=== PATIENT | male | born 1975 | race Two or more races ===

== ENCOUNTER 2018-01-29 05:59 | Day surgery (SDC) | payer OTHER ==
[~2018-01-29] VITALS: Ht 175.3 cm; Wt 101.2 kg
[2018-01-29] MEDS ORDERED: METHOCARBAMOL750 MG ORAL (06:37)
[2018-01-29] MEDS ORDERED: NAPROXEN250 M1 PO (06:37)
[2018-01-29] MEDS ORDERED: OMEPRAZOLE20 M2 ORAL (06:37)
[2018-01-29 06:47] VITALS: BP 130/81
--- NOTE | 2018-01-29 07:12 | Pre-Procedure Note/Attestation ---
Pre-Procedure Note/Attestation Complete Prior to Procedure Planned Procedure: left Procedure Narrative: knee stem cell injection Indications for Procedure Pre-Operative Diagnosis: left knee meniscus tear Attestation I attest that I discussed the nature of the procedure; its benefits; risks and complications; and alternatives (and the risks and benefits of such alternatives ), prior to the procedure, with the patient (or the patient's legal development representative). I attest that, if there was a reasonable possibility of needing a blood transfusion, the patient (or the patient's legal development representative) was given the [facility] standardized written summary, pursuant to the Raymond Bg Blood Safety Act ([place] Health and Safety Code # 1645, as amended). I attest that I re-evaluated the patient just prior to the surgery and that there has been no change in the patient's H&P, except as documented below: Juancho Bernal MD Jan 29, 2018 07:12
--- NOTE | 2018-01-29 07:13 | Operative Note - PDOC ---
Operative Note Operative Note Pre-op Diagnosis: left knee meniscus tear Procedure: see op report Post-op Diagnosis: same as pre-op plus Operative Findings: consistent w/pre-op dx studies Anesthesia: MAC Specimen: none Complications: none Condition: stable Estimated Blood Loss: none Implant(s) used?: No Juancho Bernal MD Jan 29, 2018 07:13
[2018-01-29] MEDS ORDERED: Bupivacaine w/Epi 0.25% 30ml Vial INJ ONE ×2 (08:03→08:17)
[2018-01-29] MEDS ORDERED: Propofol 200mg/20ml IV ONE (08:24)
[2018-01-29 09:00] VITALS: BP 125/71
[2018-01-29 09:15] VITALS: BP 124/69
--- NOTE | 2018-01-29 09:17 | Immediate Post-Op Evaluation ---
Immediate Post-Op Evalulation Immediate Post-Op Evalulation Procedure: stem cell injection left knee Date of Evaluation: Jan 29, 2018 Time of Evaluation: 08:51 IV Fluids: 500 Blood Pressure Systolic: 112 Blood Pressure Diastolic: 50 Pulse Rate: 70 Respiratory Rate: 14 O2 Sat by Pulse Oximetry: 98 Temperature (Fahrenheit): 98.0 Nausea: No Vomiting: No Complications none Patient Status: awake, reacts, patent Hydration Status: adequate Drug: ancef Given Within 1 Hr of Incision: Yes Time Given: 08:05 Ashley Pereira CRNA Jan 29, 2018 09:17
--- NOTE | 2018-01-29 09:19 | Anethesia Preoperative Eval ---
Anesthesia Pre-op PMH/ROS General Date of Evaluation: Jan 29, 2018 Time of Evaluation: 07:00 Anesthesiologist: margarito ASA Score: ASA 2 Mallampati Score Class I : Soft palate, uvula, fauces, pillars visible Class II: Soft palate, uvula, fauces visible Class III: Soft palate, base of uvula visible Class IV: Only hard plate visible Mallampati Classification: Class II Surgeon: delbert Diagnosis: knee pain Surgical Procedure: stem cell injection Anesthesia History: none Allergies: Coded Allergies: No Known Allergies (Unverified , 01/28/18) Patient NPO?: Yes NPO Date: Jan 28, 2018 NPO Time: 23:59 Past Medical History Cardiovascular: Denies: HTN, CAD, NC, valve dz, arrhythmia, other Pulmonary: Denies: asthma, COPD, TEDDY, other Gastrointestinal/Genitourinary: Denies: GERD, CRI, ESRD, other Neurologic/Psychiatric: Denies: dementia, CVA, depression/anxiety, TIA, other Endocrine: Denies: DM, hypothyroidism, steroids, other HEENT: Denies: cataract (L), cataract (R), glaucoma, KOTLIK (L), KOTLIK (R), other Hematology/Immune: Denies: anemia, DVT, bleeding disorder, other Musculoskeletal/Integumentary: Denies: OA, RA, DJD, DDD, edema, other Other: obesity PSxH Narrative: none Anesthesia Pre-op Phys. Exam Physician Exam Last Vital Signs Date Time Temp Pulse Resp B/P (MAP) Pulse Ox O2 Delivery O2 Flow Rate FiO2 01/29/18 06:47 97.9 65 20 130/81 97 Room Air 97.9 Constitutional: NAD Neurologic: CN 2-12 intact Cardiovascular: RRR Respiratory: CTA Gastrointestinal: S/NT/ND Airway Exam Mallampati Classification 2 Mallampati Score: Class II MO: full ROM: full Dentures: no upper, no lower Anesthesia Pre-op A/P Studies Pre-op Studies: EKG - sr Risk Assessment & Plan Assessment: pt declines sedation; wishes to receive local and standby anesthesia Plan: local Status Change Before Surgery: No Pre-Antibiotics Drug: ancef Given Within 1 Hr of Incision: Yes Time Given: 08:05 Ashley Pereira CRNA Jan 29, 2018 09:19
[2018-01-29 10:15] VITALS: BP 125/71
--- NOTE | 2018-01-29 10:15 | 48 Hour Post Anesthesia Eval ---
Post Anesthesia Evaluation Procedure: stem cell injection left knee Date of Evaluation: Jan 29, 2018 Time of Evaluation: 10:15 Blood Pressure Systolic: 125 0: 71 Pulse Rate: 70 Respiratory Rate: 14 O2 Sat by Pulse Oximetry: 98 Airway: patent Nausea: No Vomiting: No Hydration Status: adequate Cardiopulmonary Status: stable Mental Status/LOC: patient returned to baseline Post-Anesthesia Complications: none Follow-up care needed: N/A Ashley Pereira CRNA Jan 29, 2018 10:15
[2018-01-29] MEDS ORDERED: Norco 5mg/325mg tab ORAL PRN (13:00)
[2018-01-29] MEDS ORDERED: Tylenol #3 tab (300mg/30mg) ORAL PRN (13:00)
[2018-01-29] MEDS ORDERED: D5 1/2NS 1,000 ML IV SCH (13:00)
[2018-01-29] MEDS ORDERED: HYDROmorphone 1mg/ml Carpuject SUBQ PRN (13:00)
--- NOTE | 2018-01-29 21:30 | Operative Note - Dictated ---
DATE OF OPERATION: 01/29/2018 PREOPERATIVE DIAGNOSES: 1. Left knee medial meniscus tear. 2. Left knee chondral damage. POSTOPERATIVE DIAGNOSES: 1. Left knee medial meniscus tear. 2. Left knee chondral damage. PROCEDURES: 1. Bone marrow aspiration, left iliac crest. 2. Stem cell injection, left knee. SURGEON: Juancho Bernal M.D. ANESTHESIA: Local. INDICATION FOR PROCEDURE: The patient is a pleasant 42-year-old gentleman, who was diagnosed with a meniscal tear as well as chondral damage. He continued to have left knee pain, therefore elected to undergo stem cell injection. Risks, limitations, expectations, and complications of procedure were discussed in detail. All questions addressed. DESCRIPTION OF PROCEDURE: After informed consent was obtained, the patient was brought to the operating room. The patient was placed under 0.25% Marcaine along the iliac crest. Trocar was then placed in the iliac crest and 60 mL of stem cell or bone marrow aspirate from the iliac crest was aspirated. Once that was done, that was centrifuged and isolated 10 mL of stem cell plasma concentrate. Using ultrasound guidance, this was injected into the suprapatellar pouch area into the knee joint. The patient tolerated the injection without complications. He was then transferred to recovery room. ESTIMATED BLOOD LOSS: None. COMPLICATIONS: None. SPECIMENS: None. IMPLANTS: None. Juancho Bernal M.D. DR: EDISON JOB#: [id number] CC: [id number]
== END 2018-01-29 09:25 | disposition home or self-care (01) ==
LOC: SUR 05:59
DX: M23.204 Derangement of unspecified medial meniscus due to old tear or injury, left knee (principal); M94.8X6 Other specified disorders of cartilage, lower leg; E66.9 Obesity, unspecified
CPT/HCPCS: 20610; 38220; J0690; J2704